=== PATIENT | female | born 1985 | race Caucasian/White ===

== ENCOUNTER 2017-10-02 07:21 | Day surgery (SDC) | payer OTHER ==
[~2017-10-02] VITALS: Ht 167.6 cm; Wt 77.1 kg
[~2017-10-02 07:21] MED LIST: ABX; Augmentin 875-1 EACH PO; CEPH500 PO; CHOL10002 PO; CRINONE1.125 GM VG; Diflucan100 MG PO; ESTR2 PO; FLUC150A PO; HYDACE5 PO; IBUP800 PO; NAPR250 PO; PHENA100 PO; PHENA200 PO; PRENATAL VITAM1 EAC2 PO; PROBIOTIC1 EAC1 PO; PROBIOTIC1 EAC3 PO; PROGESTERONE IM; Percocet 5-3251 EACH PO; SELENIUM PO; SULTRIDS PO; [UNRECOGNIZED DRUG - OTHER] PO; [UNRECOGNIZED DRUG - REMARK]
== END 2017-10-02 13:00 | disposition home or self-care (01) ==
LOC: ORSCMMR 07:21
PROVIDERS: Obstetrics & Gynecology
PROC: 0UB64ZZ Excision of Left Fallopian Tube, Percutaneous Endoscopic Approach (ICD-10-PCS; principal; 2017-10-02 09:00)
DX: R10.2 Pelvic and perineal pain (principal); N94.6 Dysmenorrhea, unspecified; Q50.5 Embryonic cyst of broad ligament; N94.10 Unspecified dyspareunia
CPT/HCPCS: 88304; J0171; J1100; J1885; J2250; J2405; J2710; J2765; J3010; J7120

== ENCOUNTER 2019-08-04 13:34 | Emergency (ER) | payer OTHER ==
[~2019-08-04] VITALS: Ht 167.6 cm; Wt 79.4 kg
[2019-08-04] MEDS ORDERED: IBUP400 PO (15:20)
[2019-08-04] MEDS ORDERED: Cephalexin500 MG PO (15:20)
[2019-08-04] MEDS ORDERED: Diflucan100 MG PO (15:35)
== END 2019-08-04 15:47 | disposition home or self-care (01) ==
LOC: ER 13:34
DX: S00.83XA Contusion of other part of head, initial encounter (principal); K08.89 Other specified disorders of teeth and supporting structures; Z91.018 Allergy to other foods; Z91.040 Latex allergy status; Z88.8 Allergy status to other drugs, medicaments and biological substances; W50.0XXA Accidental hit or strike by another person, initial encounter
CPT/HCPCS: 70100; 99283-25; A9270-GY

== ENCOUNTER 2020-07-15 15:21 | Emergency (ER) | payer OTHER ==
[~2020-07-15] VITALS: Ht 170.2 cm; Wt 83.9 kg
[~2020-07-15 15:21] MED LIST changes: +Cephalexin500 MG PO; +IBUP400 PO
== END 2020-07-15 16:09 | disposition home or self-care (01) ==
LOC: ER 15:21
DX: S93.601A Unspecified sprain of right foot, initial encounter (principal); Z91.040 Latex allergy status; Z91.02 Food additives allergy status; Z88.8 Allergy status to other drugs, medicaments and biological substances; Z79.899 Other long term (current) drug therapy; X50.1XXA Overexertion from prolonged static or awkward postures, initial encounter; Y93.64 Activity, baseball
CPT/HCPCS: 73630; 99283-25; A9270